=== PATIENT | male | born 1940 | race Two or more races ===

== ENCOUNTER 2019-06-02 09:19 | Observation (INO) | payer MEDICARE, BC ==
--- NOTE | 2019-05-28 08:29 | Pre-op HX & Phy Repo 2 SIG ---
This patient had been scheduled for surgery on June 02, 2019. CHIEF COMPLAINT: Pain and lump in the right groin. HISTORY OF PRESENT ILLNESS: This is a 78-year-old male, who presented with pain and lump in the right groin for about two months. He stated that the pain is off and on without radiation and the pain gets aggravated with protrusion of the lump. He claims that manually he reduces the lump and the pain resolves. PAST MEDICAL HISTORY: The patient denied allergies, asthma, diabetes, hypertension, cardiac or renal diseases. PAST SURGICAL HISTORY: None. MEDICATIONS: None. SOCIAL HISTORY: The patient is a 78-year-old male, who is and father of three children. 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 REVIEW OF SYSTEMS: He has nocturia x4. PHYSICAL EXAMINATION: GENERAL: The patient appeared to be a well-developed, well-nourished, 78-year-old male, in no acute distress. VITAL SIGNS: Blood pressure 186/86, pulse rate is 53. HEENT: Head is normocephalic and atraumatic. Eyes, pupils are equal, round, and reactive to light. Mouth is clear. NECK: There is no palpable thyromegaly or adenopathy. CHEST: Clear to auscultation and percussion. HEART: There is no gallop or murmur. S1 and S2 are within normal limits. ABDOMEN: Soft, flat, nontender. There is no palpable organomegaly. Bowel sounds are audible. GENITAL: He has a normal circumcised penis. His testicles are normal in shape and consistency. He has a reducible right inguinal hernia, which extends up to the external ring. EXTREMITIES: Within normal limits. ASSESSMENT: Right inguinal hernia. PLAN: The patient has been scheduled for right inguinal herniorrhaphy with application of mesh on June 02, 2019. The risks and benefits have been explained to him. He understood and will eugenio the consent. Lizzie Willard M.D. DR: NA JOB#: [id number] CC:
--- NOTE | 2019-06-01 22:30 | Consultation ---
DATE OF CONSULTATION: 06/01/2019 NOTE: "POOR AUDIO QUALITY" CONSULTING PHYSICIAN: Fer Goode M.D. REQUESTING PHYSICIAN: Lizzie Willard M.D. REASON FOR CONSULTATION: Right inguinal hernia and BPH. HISTORY OF PRESENT ILLNESS: This is a 78-year-old white male. He is admitted to the hospital for right inguinal herniorrhaphy. The patient has longstanding issues with BPH and is placed on alpha-blockers, but he still has about and terminal dribbling as well as hesitancy. The patient is admitted also for cystoscopic evaluation prior to herniorrhaphy to determine the degree of outflow obstruction. PAST MEDICAL HISTORY: The patient has surgical history of tonsillectomy and he also has history of gastritis on the medical side. Also, he has history of gonorrhea many years ago. SOCIAL HISTORY: He is . He has 2 children. FAMILY HISTORY: The patient's father had problem with the prostate and mother with CA of the breast. PHYSICAL EXAMINATION: GENERAL: He is well developed, well nourished, in no acute distress. HEAD AND NECK: Negative. CHEST: Normal. Clear breathing sounds. HEART: Normal sounds. ABDOMEN: Soft. No organomegaly, tenderness, or mass. EXTERNAL GENITALIA: Revealed circumcised phallus. Descended normal testicles. He has a right inguinal hernia. BACK: No CVA tenderness. RECTAL: Around 50 g smooth prostate (normal PSA). IMPRESSION: 1. BPH. 2. Right inguinal hernia. RECOMMENDATION: Cystoscopic evaluation. Thank you very much for giving me opportunity to see the patient. Fer Goode M.D. DR: Griselda JOB#: [id number] CC:
[2019-06-02] VITALS (14 sets, daily range): BP systolic 111–148; BP diastolic 55–71
[~2019-06-02] VITALS: Ht 167.6 cm; Wt 68.0 kg
[~2019-06-02 09:19] MED LIST: AMLODIPINE BESYL5 MG ORAL; FLOMAX0.4 MG ORAL; ceFAZolin sod 1 GM in NS 55 ML IVPB ONE
--- NOTE | 2019-06-02 10:47 | Anethesia Preoperative Eval ---
Anesthesia Pre-op PMH/ROS General Date of Evaluation: Jun 02, 2019 Anesthesiologist: Prashant ASA Score: ASA 2 Mallampati Score Class I : Soft palate, uvula, fauces, pillars visible Class II: Soft palate, uvula, fauces visible Class III: Soft palate, base of uvula visible Class IV: Only hard plate visible Mallampati Classification: Class II Surgeon: Trevor Diagnosis: BPH, right inguinal hernia Surgical Procedure: cystoscopy and right inguinal hernia repair Anesthesia History: none Family History: no anesthesia problems Allergies: Coded Allergies: No Known Allergies (Unverified , 06/01/19) Medications: see eMAR Patient NPO?: Yes NPO Date: Jun 01, 2019 NPO Time: 18:00 Past Medical History Cardiovascular: Reports: HTN; Denies: CAD, AR, valve dz, arrhythmia, other Pulmonary: Denies: asthma, COPD, [place], other Gastrointestinal/Genitourinary: Reports: other - BPH; Denies: GERD, CRI, ESRD Neurologic/Psychiatric: Denies: dementia, CVA, depression/anxiety, TIA, other Endocrine: Denies: DM, hypothyroidism, steroids, other HEENT: Denies: cataract (L), cataract (R), glaucoma, [place] (L), [place] (R), other Hematology/Immune: Denies: anemia, DVT, bleeding disorder, other Musculoskeletal/Integumentary: Denies: OA, RA, DJD, DDD, edema, other PSxH Narrative: bilateral cataract sx, left shoulder surgery Anesthesia Pre-op Phys. Exam Physician Exam Last Vital Signs Date Time Temp Pulse Resp B/P (MAP) Pulse Ox O2 Delivery O2 Flow Rate FiO2 06/02/19 09:51 Room Air 06/02/19 09:50 96.9 52 18 130/69 98 Constitutional: NAD Cardiovascular: RRR Respiratory: CTA Airway Exam Mallampati Score: Class II ROM: full Anesthesia Pre-op A/P Labs see chart Studies Pre-op Studies: EKG - sb Risk Assessment & Plan Assessment: ASA II Plan: GA Status Change Before Surgery: No Pre-Antibiotics Drug: Ancef 1g Given Within 1 Hr of Incision: Yes Paula Ngo MD Jun 02, 2019 10:47
[2019-06-02] MEDS ORDERED: Bupivacaine 0.25% Inj 30ml INJ ONE ×2 (10:55→12:13)
[2019-06-02] MEDS ORDERED: Bacitracin 50000 Units Vial ONE (10:55)
[2019-06-02] MEDS ORDERED: Lidocaine HCl 2% Jelly 6ml Tube TOPIC ONE (10:55)
[2019-06-02] MEDS ORDERED: NeoSporin Gu Irrig 1ml Amp IRRIG ONE (10:55)
[2019-06-02] MEDS ORDERED: Sterile Water Irrig 1000ml IRRIG ONE (11:00)
[2019-06-02] MEDS ORDERED: NS Irrig 1000ml ONE (11:00)
[2019-06-02] MEDS ORDERED: Sterile Water For Irrig 2000ml IRRIG ONE (11:00)
[2019-06-02] MEDS ORDERED: LR 1000ml ONE (11:00)
[2019-06-02] MEDS ORDERED: Propofol 200mg/20ml IV ONE (11:03)
[2019-06-02] MEDS ORDERED: Midazolam 2mg/2ml Inj ONE (11:03)
[2019-06-02] MEDS ORDERED: fentaNYL 100 mcg/2 mL IV ONE (11:03)
[2019-06-02] MEDS ORDERED: Lidocaine 1% MPF 10mg/ml 5ml ONE (11:03)
--- NOTE | 2019-06-02 11:32 | Pre-Procedure Note/Attestation ---
Pre-Procedure Note/Attestation Complete Prior to Procedure Planned Procedure: not applicable Procedure Narrative: Cystoscopy Indications for Procedure Pre-Operative Diagnosis: BPH Attestation I attest that I discussed the nature of the procedure; its benefits; risks and complications; and alternatives (and the risks and benefits of such alternatives ), prior to the procedure, with the patient (or the patient's legal pest control service representative). I attest that, if there was a reasonable possibility of needing a blood transfusion, the patient (or the patient's legal pest control service representative) was given the [facility] standardized written summary, pursuant to the Jamie [place] Blood Safety Act ([place] Health and Safety Code # 1645, as amended). I attest that I re-evaluated the patient just prior to the surgery and that there has been no change in the patient's H&P, except as documented below: Fer Goode MD Jun 02, 2019 11:32
--- NOTE | 2019-06-02 11:33 | Pre-Procedure Note/Attestation ---
Pre-Procedure Note/Attestation Complete Prior to Procedure Planned Procedure: right Procedure Narrative: right inguinal herniorrhaphy with application of mesh Indications for Procedure Pre-Operative Diagnosis: right inguinal hernia Attestation I attest that I discussed the nature of the procedure; its benefits; risks and complications; and alternatives (and the risks and benefits of such alternatives ), prior to the procedure, with the patient (or the patient's legal marketing sales representative). I attest that, if there was a reasonable possibility of needing a blood transfusion, the patient (or the patient's legal marketing sales representative) was given the [facility] standardized written summary, pursuant to the Jamie [place] Blood Safety Act ([place] Health and Safety Code # 1645, as amended). I attest that I re-evaluated the patient just prior to the surgery and that there has been no change in the patient's H&P, except as documented below: Lizzie Willard MD Jun 02, 2019 11:33
[2019-06-02] MEDS ORDERED: Ketorolac 30mg Inj ONE (11:45)
[2019-06-02] MEDS ORDERED: LR 1000ml 1,000 ML IVLG SCH (11:52)
[2019-06-02] MEDS ORDERED: LORazepam Inj 2mg/ml 1ml IV PRN (12:00)
[2019-06-02] MEDS ORDERED: Midazolam 2mg/2ml Inj IVP PRN (12:00)
[2019-06-02] MEDS ORDERED: DiphenhydrAMINE 50mg/ml Inj IVP PRN (12:00)
[2019-06-02] MEDS ORDERED: fentaNYL 100 mcg/2 mL IV PRN (12:00)
[2019-06-02] MEDS ORDERED: Hydromorphone 0.5mg/0.5ml inj IVP PRN (12:00)
[2019-06-02] MEDS ORDERED: Metoclopramide 10mg/2ml Inj IVP PRN (12:00)
[2019-06-02] MEDS ORDERED: Ketorolac 30mg Inj IV PRN (12:00)
--- NOTE | 2019-06-02 13:11 | Brief Operative Note ---
Immediate Post Operative Note Operative Note Pre-op Diagnosis: right inguinal hernia Post-op Diagnosis: same as pre-op Findings: consistent w/pre-op dx studies Surgeon: MD Taco Cash Applications Representative: Dr. Higuera Anesthesiologist: Dr. Cerda Anesthesia: general Specimen: yes Complications: none Condition: stable Fluids: per anesthesiologist Estimated Blood Loss: minimal Drains: none Implant(s) used?: Yes Lizzie Wilalrd MD Jun 02, 2019 13:11
--- NOTE | 2019-06-02 13:14 | Immediate Post-Op Evaluation ---
Immediate Post-Op Evalulation Immediate Post-Op Evalulation Procedure: Cystoscopy and right inguinal hernia repair Date of Evaluation: Jun 02, 2019 Time of Evaluation: 13:15 IV Fluids: 800 Blood Products: 0 Estimated Blood Loss: min Urinary Output: 0 Blood Pressure Systolic: 130 Blood Pressure Diastolic: 60 Pulse Rate: 54 Respiratory Rate: 16 O2 Sat by Pulse Oximetry: 100 Temperature (Fahrenheit): 98.4 Pain Score (1-10): 0 Nausea: No Vomiting: No Complications 0 Patient Status: awake, reacts, patent, none Hydration Status: adequate Drug: Ancef 1g Given Within 1 Hr of Incision: Yes Paula Ngo MD Jun 02, 2019 13:14
[2019-06-02] MEDS ORDERED: HYDROmorphone 1mg/ml Carpuject IVP PRN (13:15)
--- NOTE | 2019-06-02 14:40 | NUR ---
NURSE NOTES: REC'D FROM PACU SP RT INGUINAL HERNIA REPAIR WITH MESH,AND CYSTOSCOPY. AWAKE /ALERT. V/S TAKEN. NO C/O PAIN. ALVARADO CTHETER IN PLACE DRAINING RED OUTPUT. IN NO ACUTE DISTRESS.
[2019-06-02] MEDS: D5 1/2NS w/KCl 20mEq 1,000 ML IV SCH (15:22)
--- NOTE | 2019-06-02 15:47 | NUR ---
NURSE NOTES: DR Ethan CABRERA CALLED RE :PT HOME RECONCILIATION MED LIST, LEFT MESSAGE TO RETURN CALL.
--- NOTE | 2019-06-02 16:45 | Operative Note - Dictated ---
DATE OF OPERATION: 06/02/2019 PREOPERATIVE DIAGNOSIS: Right inguinal hernia. POSTOPERATIVE DIAGNOSIS: Right inguinal hernia. OPERATION PERFORMED: 1. Right inguinal herniorrhaphy with application of mesh. 2. Resection of the lipoma of the cord. 3. Blockage of the nerves to the right groin for the postoperative pain control. COMPLICATIONS: None. SURGEON: Lizzie Willard M.D. OPERATION MANAGER: Fer Goode M.D. ANESTHESIA: General with laryngeal mask. ANESTHESIOLOGIST: Dr. Cerda. INDICATIONS: This is a 78-year-old male, who presented with pain and lump in the right groin for a few months ago. Physical examination showed reducible right inguinal hernia. DESCRIPTION OF PROCEDURE: The patient was placed supine on the operating table and after general anesthesia with laryngeal mask, the right groin was properly prepped and draped. The transverse right inguinal incision was given and was carried sharply through subcutaneous tissue and Edmund fascia. The aponeurosis of the external oblique was reached and was opened along the fibers towards the external ring. The spermatic cord was identified and isolated. The exploration of the cord was performed, which showed large lipoma of the cord. This was protruding about 3 inches. This lipoma was gradually dissected and isolated. At the base, it was transligated with #0 silk and the distal part was transected and removed. After this, attention was given to the floor of the inguinal canal, which was attenuated and bulging. So, initially, a Nila repair was performed with plication of the transversalis fascia with the help of the running suture of #0 silk. After this repair, a piece of Prolene mesh was selected and was tailored to size of the floor of the inguinal canal. This mesh was secured in place with multiple interrupted suture of 2-0 Vicryl. The spermatic cord was passed through a small slit at the lower part of the mesh. During the dissection and repair, both ilioinguinal and iliohypogastric nerves were identified and preserved. After the application of the mesh, the incision was thoroughly irrigated with antibiotic solution and was infiltrated with a total of 40 mL of Marcaine 0.25%. The nerves to the right groin were blocked with infiltration of 10 mL of Marcaine for the postoperative pain control. After the injection, the aponeurosis of the external oblique was approximated with running suture of 2-0 Vicryl. The subcutaneous tissue was approximated in two layers with 3-0 plain catgut and the skin incision was approximated with running subcuticular suture of 4-0 chromic. The patient tolerated the procedure very well and was transferred to recovery room in stable condition and extubated. The sponge and needle count were correct. Estimated blood loss 5 mL. Condition of the patient at the end of the procedure was stable. Lizzie Willard M.D. DR: Cassie JOB#: [id number] CC:
--- NOTE | 2019-06-02 17:00 | Operative Note - Dictated ---
DATE OF OPERATION: 06/02/2019 PROCEDURE PERFORMED: 1. Cystoscopy. 2. Ureteral dilation. PREOPERATIVE DIAGNOSIS: BPH. POSTOPERATIVE DIAGNOSIS: BPH. ANESTHESIA: General. SURGEON: Fer Goode M.D. JUSTIFICATION: This is a 78-year-old, white male, coming for right inguinal surgery. The patient has problem with urination on alpha luis. PROCEDURE AND FINDINGS: The patient was placed in dorsal lithotomy supine position. He was prepped and draped in usual fashion. Under general anesthesia, cystoscopic evaluation carried out with #20 panendoscope, 30 degree lens under direct vision and video camera. He was found to have a trilobar hypertrophy of the prostate gland with a very prominent median lobe and very elongated prostatic urethra. Then the bladder was entered and was found to be 4+ trabeculated and no other evidence of any other pathology. At this time, after taking picture, cystoscopic evaluation terminated and number 20 Eduardo catheter was left in place. The patient tolerated the procedure well and remained stable throughout the procedure and received 1 gram of Ancef and was repositioned in supine position for right inguinal herniorrhaphy. Fer Goode M.D. DR: Charanjit JOB#: [id number] CC:
[2019-06-02] MEDS: Docusate Sod/Senna tab ORAL SCH (17:27)
--- NOTE | 2019-06-02 19:00 | NUR ---
NURSE NOTES: QUIET IN BED. IN NO APPARENT DISTRESS.
--- NOTE | 2019-06-02 19:11 | NUR ---
HAND-OFF: Report given to Mao ESQUIVEL RN.
--- NOTE | 2019-06-02 19:30 | NUR ---
NURSE NOTES: Patient awake in bed, alert and oriented x4, no complaint of pain at this time. With dressing intact and stained on right inguinal area. With Eduardo catheter intact and draining well with dark janelle to pinkish in color urine. Bed in lowest position and lock engaged. Will continue to monitor.
[2019-06-02] MEDS: ceFAZolin sod 1 GM in NS 55 ML IVPB SCH (20:30)
[2019-06-02] MEDS ORDERED: Tamsulosin 0.4mg cap ORAL SCH (21:00)
[2019-06-02] MEDS ORDERED: Tamsulosin 0.4mg cap ORAL ONE (21:00)
--- NOTE | 2019-06-02 21:02 | NUR ---
NURSE NOTES: Dr. Goode called, orders obtained and carried out.
[2019-06-03] VITALS: BP 111/52
--- NOTE | 2019-06-03 02:45 | NUR ---
NURSE NOTES: Report taken from SHAYE Beckett. patient is awake and in bed, A&Ox4. No signs of distress on room air. No complaints of pain. Patient is here for observation pending D/C. Eduardo is c/d/i and patent, draining pink/red urine, continue to monitor. IV site c/d/i and running D51/2NS+20K at 20mls/hr. Bed in lowest position, call light within reach.
--- NOTE | 2019-06-03 02:51 | NUR ---
HAND-OFF: Report given to SHAYE Rojas.
[2019-06-03] MEDS: ceFAZolin sod 1 GM in NS 55 ML IVPB SCH ×2 (03:47→11:56)
[2019-06-03 04:00] VITALS: BP 109/59
--- NOTE | 2019-06-03 07:24 | NUR ---
HAND-OFF: Report given to SHAYE Frank. Patient is awake, VS stable. Output from david is red/pink. Endorsed POC for DC to RN.
[2019-06-03 08:18] VITALS: BP 126/58
[2019-06-03] MEDS: Docusate Sod/Senna tab ORAL SCH (08:28)
[2019-06-03] MEDS ORDERED: Tamsulosin 0.4mg cap ORAL SCH (09:00)
--- NOTE | 2019-06-03 10:21 | NUR ---
NURSE NOTES: patient received resting in his bed with open eyes, A&Ox4. No signs of distress on room air. No complaints of pain. Patient is here for observation. Alesha solorzano c/d/ @ 0830 am as ordered. IV intact and patent. Bed in lowest position, call light and frequent used objects are within reach. will continue to monitor.
[2019-06-03 11:38] VITALS: BP 123/56
--- NOTE | 2019-06-03 14:10 | NUR ---
patient able to urinate by self bladder scan done as requested by HCP and 31 ml residual noted. HCP made aware
[2019-06-03] MEDS: D5 1/2NS w/KCl 20mEq 1,000 ML IV SCH (15:00)
--- NOTE | 2019-06-03 15:25 | NUR ---
NURSE NOTES: patient dis charged with all his belonging as ordered. vital signs stable. no c/o pain and SOB noted. patient instructed to see his primary HCP with in a week and go to ER if unable to urinate by self, experienced fever (TEM 100.4 or higher).
--- NOTE | 2019-06-03 15:31 | NUR ---
CASE MANAGEMENT:REVIEW 06/02/19 78 YR OLD MALE HERE FOR ELECTIVE SURGERY SI: RT INGUINAL HERNIA 96.9 52 18 130/69 98% ON RA IS: TO SURGERY FOR: CYSTOSCOPY. URETERAL DILATION IV ANCEF Q8HRS IV DILAUDID Q3HRS PRN : TO MED/SURG 3 EAST POST OP 06/03/19 DISCHARGE
--- NOTE | 2019-06-03 16:44 | General Surgery Progress Note ---
General Surgery-Progress Note Objective Last 24 Hour Vital Signs Date Time Temp Pulse Resp B/P (MAP) Pulse Ox O2 Delivery O2 Flow Rate FiO2 06/03/19 11:38 98.1 56 21 123/56 (78) 95 06/03/19 10:19 Room Air 06/03/19 08:28 61 126/58 06/03/19 08:18 98.8 61 19 126/58 (80) 95 06/03/19 04:00 97.2 55 18 109/59 (76) 95 06/03/19 00:00 97.3 60 18 111/52 (71) 95 06/02/19 21:00 Room Air 06/02/19 20:00 97.8 56 18 111/56 (74) 96 I&O Intake and Output 06/02/19 06/03/19 18:59 06:59 Intake Total 1290 ml 2695 ml Output Total 315 ml 2200 ml Balance 975 ml 495 ml Intake Oral 240 ml 2675 ml IV Total 1050 ml 20 ml Output Urine Total 300 ml 2200 ml Estimated Blood Loss 15 ml # Voids 1 Dressing: dry Drains: none Respiratory: clear Abdomen: soft Extremities: no tenderness Assessment Additional Comments S/P right inguinal herniorrhaphy Plan Additional Comments discharge home after urination Lizzie Willard MD Jun 03, 2019 16:44
--- NOTE | 2019-06-04 10:16 | 48 Hour Post Anesthesia Eval ---
Post Anesthesia Evaluation Procedure: Cystoscopy and right inguinal hernia repair Date of Evaluation: Jun 03, 2019 Airway: patent Nausea: No Vomiting: No Hydration Status: adequate Cardiopulmonary Status: at baseline Mental Status/LOC: patient returned to baseline Post-Anesthesia Complications: 0 Follow-up care needed: N/A - further care sa per primary team Paula Ngo MD Jun 04, 2019 10:16
== END 2019-06-03 15:18 | disposition home or self-care (01) ==
LOC: SUR 09:19 → UNDOADMIN 13:29 → 3E 13:29
DX: K40.90 Unilateral inguinal hernia, without obstruction or gangrene, not specified as recurrent (principal)
CPT/HCPCS: 49505; 52005; 96360 ×2; 96365 ×2; C1781; J0690; J1170 ×2; J1885; J2250; J2405; J2704; J3010; J3490; 94003; 94150; 96361; C9399; G0378